=== PATIENT | female | born 1965 | race Caucasian/White ===

== ENCOUNTER → 2017-11-07 | Outpatient (CLI) | payer OTHER ==
[2016-05-20 11:43] VITALS: BMI 21.3
[~2017-11-07] MED LIST: ALBU8.5H IH; ALPR-429 PO; BACDS PO; CAL600 PO; CLO5 PO; CLOB15CR22 TP; DOCU-202 PO; EST625 PO; ESTR0.4513 PO; GABA-549 PO; HYDR2TAB41 PO; HYDR59LO13 TP; IBU800 PO; KET10 PO; LEVO75TA73 PO; MELO-150 PO; NOR5 PO; PER PO; SPIR50TA31 PO; TOLT4CAP13 PO; TRA50 PO; TRAZ-133 PO; [UNRECOGNIZED DRUG - CODE] PO; [UNRECOGNIZED DRUG - CODE] PO; [UNRECOGNIZED DRUG - CODE] PO
== END ==
LOC: LAB 14:14
PROVIDERS: ATTEND Nurse Practitioner Family
DX: E05.90 Thyrotoxicosis, unspecified without thyrotoxic crisis or storm (principal); E04.1 Nontoxic single thyroid nodule
CPT/HCPCS: 36415; 84443

== ENCOUNTER → 2018-07-26 | Outpatient (CLI) | payer OTHER ==
[2016-05-20 11:43] VITALS: BMI 21.3
[2018-07-26 16:29] LABS: PLATELET COUNT, AUTOMATED 449 K/uL (150-450)
== END ==
LOC: LAB 16:11
PROVIDERS: ATTEND Nurse Practitioner Family
DX: Z00.00 Encounter for general adult medical examination without abnormal findings (principal); E04.9 Nontoxic goiter, unspecified; E05.90 Thyrotoxicosis, unspecified without thyrotoxic crisis or storm; E04.1 Nontoxic single thyroid nodule; R53.81 Other malaise; M25.569 Pain in unspecified knee; M81.8 Other osteoporosis without current pathological fracture; E78.00 Pure hypercholesterolemia, unspecified
CPT/HCPCS: 36415; 82040; 82247; 82306; 82310; 82374; 82435; 82465; 82565; 82607; 82947; 83718; 84075; 84132; 84155; 84295; 84443; 84450; 84460; 84478; 84520; 85025

== ENCOUNTER → 2018-11-29 | Outpatient (CLI) | payer OTHER ==
[2016-05-20 11:43] VITALS: BMI 21.3
[2018-11-29 11:14] LABS: LDL CHOLESTEROL 129 mg/dl
== END ==
LOC: LAB 10:38
PROVIDERS: ATTEND Nurse Practitioner Family
DX: E87.5 Hyperkalemia (principal); E05.90 Thyrotoxicosis, unspecified without thyrotoxic crisis or storm; E04.1 Nontoxic single thyroid nodule; E78.00 Pure hypercholesterolemia, unspecified; Z00.00 Encounter for general adult medical examination without abnormal findings
CPT/HCPCS: 36415; 82040; 82247; 82306; 82310; 82374; 82435; 82465; 82565; 82607; 82947; 83036; 83718; 84075; 84132; 84155; 84295; 84443; 84450; 84460; 84478; 84520; 85027